=== PATIENT | male | born 1945 | race Caucasian/White ===

== ENCOUNTER 2023-03-26 08:29 | Day surgery (SDC) | payer OTHER, SELFPAY ==
--- NOTE | 2023-03-26 07:17 | HPE_ITS ---
Assessment and Plan Assessment and plan (1) Nuclear age-related cataract, left eye: Status: Acute Assessment and plan: Assessment: Visually significant cataract of the left eye. Plan: Cataract extraction with lens implantation of the left eye. History of Present Illness History of Present Illness Chief Complaint: Progressive decreased vision, left eye Narrative: The patient is a 76-year-old gentleman who presented with complaints of progressive decreased vision in the left eye, at both distance and near. He no significant difficulty with glare from headlights at night. On examination he is noted to have a dense nuclear cataract in the left eye. The option of cataract surgery was offered to the patient and he wished to proceed. PFSH All Active Problems Nuclear age-related cataract, left eye (Acute) Medical History Diabetes mellitus High blood pressure disorder Low back pain Lumbar radiculopathy Obese Osteoarthritis Pain of knee joint on movement Personal history of colonic polyps Presence of hip joint prosthesis Sleep apnea Surgical History History of right hip replacement Social History Smoking/Tobacco Use Status: Never Smoking risk assessment performed?: Yes Alcohol Intake: never Drug use: Never Substance use type: does not use Housing: house Do you feel safe at home: Yes Do you feel safe in your relationship?: Yes Meds Allergies and Home Medications Allergies Allergy/AdvReac Type Severity Reaction Status Date / Time No Known Allergies Allergy Unverified 03/26/23 09:01 Home Medications Medication Instructions Recorded Confirmed Type atenolol 100 mg tablet 100 mg PO BID 03/24/23 03/26/23 History atorvastatin 10 mg tablet 10 mg PO HS 03/24/23 03/26/23 History diclofenac sodium 1 % topical gel 1 applic topical DIRECTED 03/24/23 03/25/23 History empagliflozin 25 mg tablet 25 mg PO DAILY 03/24/23 03/26/23 History (Jardiance) glipizide 10 mg tablet 10 mg PO DIRECTED 03/24/23 03/26/23 History hydrochlorothiazide 25 mg tablet 25 mg PO DAILY 03/24/23 03/26/23 History lisinopril 40 mg tablet 40 mg PO DAILY 03/24/23 03/26/23 History omeprazole 20 mg tablet,delayed 20 mg PO BID 03/24/23 03/26/23 History release salsalate 500 mg tablet 500 mg PO BID 03/24/23 03/26/23 History terazosin 10 mg capsule 10 mg PO DAILY 03/24/23 03/26/23 History Exam Eyes Other: Most recent examination reveals uncorrected visual acuity of 20/25 OD, 20/30 OS. Extraocular motility is normal. Intraocular pressure is 8 OD, 10 OS. Slit- lamp examination reveals pupils dilating to 5 mm OU. The anterior chambers are shallow with narrow angles. In the right eye there is a mild nuclear cataract. In the left eye there is a moderately advanced nuclear cataract. Dilated funduscopic examination reveals disc cupping of 0.25 OU with normal vessels, macula, peripheral retina and vitreous. Resp Auscultation: clear to auscultation bilaterally Cardio Rate: regular rate Rhythm: regular rhythm
[2023-03-26 08:50] VITALS: BP 131/83; PULSE 63; RESP 16; TEMP 37.1; O2SAT 96
[2023-03-26] MEDS: Tropicam./Phenyleph. (1/2.5%) 5 ML BTL OS ×3 (08:58→09:13)
--- NOTE | 2023-03-26 09:19 | W.ANESPRE ---
General Info Date of Service Date Performed: 03/26/23 Height: 5 ft 7.5 in Weight: 101.5 kg Body Mass Index (BMI): 34.5 Surgical Procedure: Operation Date: 03/26/23 10:40 Proposed Procedure Side Surgeon p Cataract Extraction with IOL Implant Left Romel Enrique MD Meds Allergies and Home Medications Allergies Allergy/AdvReac Type Severity Reaction Status Date / Time No Known Allergies Allergy Unverified 03/26/23 09:01 Home Medication Medication Instructions Recorded atenolol 100 mg tablet 100 mg PO BID 03/24/23 atorvastatin 10 mg tablet 10 mg PO HS 03/24/23 diclofenac sodium 1 % topical gel 1 applic topical DIRECTED 03/24/23 empagliflozin 25 mg tablet 25 mg PO DAILY 03/24/23 (Jardiance) glipizide 10 mg tablet 10 mg PO DIRECTED 03/24/23 hydrochlorothiazide 25 mg tablet 25 mg PO DAILY 03/24/23 lisinopril 40 mg tablet 40 mg PO DAILY 03/24/23 omeprazole 20 mg tablet,delayed 20 mg PO BID 03/24/23 release salsalate 500 mg tablet 500 mg PO BID 03/24/23 terazosin 10 mg capsule 10 mg PO DAILY 03/24/23 Current Visit Medications: Current Medications Generic Name Dose Route Start Last Admin Trade Name Freq PRN Reason Stop Dose Admin Acetaminophen 1,000 mg 03/26/23 06:00 Acetaminophen 500 Mg Tab PO 04/25/23 05:59 Q4H PRN PRN Balanced Salt Solution 500 ml 03/26/23 06:00 Balanced Salt Soln.-Plus 500 Ml Bag OP 04/25/23 05:59 DIRECTED [facility] Miscellaneous Medication 0 ml 03/26/23 06:00 Prednisolone 1%, Moxifloxacin 0.5%, Nepafenac 0.1% 5ml Btl OS 04/25/23 05:59 DIRECTED [facility] Miscellaneous Medication 0 ml 03/26/23 06:00 03/26/23 09:13 Tropicam./Phenyleph. (1/2.5%) 5 Ml Btl OS 04/25/23 05:59 1 drp DIRECTED [facility]AN[facility] Administration Tetracaine HCl 0 ml 03/26/23 06:00 Tetracaine 0.5% 4 Ml Btl OS 04/25/23 05:59 DIRECTED [facility] PFSH Active Problems Active Problems: Problem Status Onset Code Nuclear age-related cataract, left eye H25.12 Medical History Medical History Diabetes mellitus High blood pressure disorder Low back pain Lumbar radiculopathy Obese Osteoarthritis Pain of knee joint on movement Personal history of colonic polyps Presence of hip joint prosthesis Sleep apnea Surgical History Surgical History History of right hip replacement Tobacco Smoking/Tobacco Use Status: Never Alcohol Alcohol Intake: never Substance Use Substance use: Never Substance use type: does not use Vital Signs and Lab Results Vital Signs Most Recent Vital Signs in EMR: Most Recent Vital Signs Temp Pulse Resp BP Pulse Ox 37.1 C 63 16 131/83 96 03/26/23 08:50 03/26/23 08:50 03/26/23 08:50 03/26/23 08:50 03/26/23 08:50 Point of Care Results Point of Care Results: Finger Stick Blood Glucose 178 03/26/23 09:01 Lab Results Blood Type / Crossmatch: No Data to Display Complete Blood Count: No Data to Display Complete Metabolic Panel: No Data to Display Liver Function Panel: No Data to Display Coagulation Panel: No Data to Display Cardiac Panel: No Data to Display Arterial Blood Gas: No Data to Display Venous Blood Gas: No Data to Display Pancreas Panel: No Data to Display Thyroid Panel: No Data to Display Infectious Disease: No Data to Display Blood Cultures: No Data to Display Toxicology Panel: No Data to Display Anesthesia Assessment and Plan Anesthesia History Personal History: No History of Anesthesia Complications Family History: No Family History of Anesthesia Complications Exercise Tolerance Exercise Tolerance: Metabolic Equivalents>4 Pertinent Negatives Pertinent Negatives: No Symptoms of GERD, No Major Cardiovascular Symptoms or Complaints and No Major Pulmonary Symptoms or Complaints Cardiac & Pulmonary Exam Cardiac Exam: Normal S1/S2 Heart Sounds Pulmonary Exam: Clear Bilateral Breath Sounds Implantable Cardiac Device Does patient have a Pacemaker or an ICD?: No Airway Exam Known Difficult Airway: No Mallampati Class: 2 Mouth Opening: Normal (> 3cm) Thyromental Distance: Less than 3 cm Neck Range of Motion: Full ROM Neck Circumference: Normal Teeth Condition: Normal Dentition, Removable Dentures/Plates Upper and Removable Dentures/Plates Lower ASA Classification ASA Score: ASA 2 Emergency Case?: No NPO Status NPO Status: NPO Clears >2 hours, Solids >8 hours Anesthesia Plan Resuscitation Status: Full Code Anesthesia Technique: MAC Anesthesia Airway Planned: Natural Airway Monitors Used: Standard Monitors
[2023-03-26 09:20] VITALS: BMI 34.5
[2023-03-26] MEDS: Balanced Salt Soln.-PLUS 500 ML BAG OP (10:37)
[2023-03-26] MEDS: Tetracaine 0.5% 4 ML BTL OS (10:38)
[2023-03-26] MEDS: Duovisc Viscoelastic System EACH 1 EACH (10:39)
[2023-03-26] MEDS: Lidocaine 1% Pres-Free 5 ML VIAL (10:40)
[2023-03-26] MEDS: Phenylephrine/Lidocaine (15/10) MG/ML 1 ML VIAL (10:41)
[2023-03-26] MEDS: Povidone-Iodine Ophth 30 ML BTL (10:42)
[2023-03-26 10:55] VITALS: BP 141/61; PULSE 61; RESP 16; TEMP 36.4; O2SAT 97
--- NOTE | 2023-03-26 10:55 | PDOC.DSDIS_ITS ---
Date of service: 03/26/23 Time of Service: 10:55 Discharge Plan Disposition Patient Disposition: Home Discharge Details Attending Provider: Romel Enrique Primary Care Provider: [facility] Home Meds and New Rx's Prescriptions: No Action salsalate 500 mg Tablet 500 mg PO BID atorvastatin 10 mg Tablet 10 mg PO HS atenolol 100 mg Tablet 100 mg PO BID glipizide 10 mg Tablet 10 mg PO DIRECTED hydrochlorothiazide 25 mg Tablet 25 mg PO DAILY lisinopril 40 mg Tablet 40 mg PO DAILY terazosin 10 mg Capsule 10 mg PO DAILY diclofenac sodium 1 % Gel 1 applic TOPICAL DIRECTED omeprazole 20 mg Tablet,Delayed Release (Dr/Ec) 20 mg PO BID Jardiance 25 mg Tablet 25 mg PO DAILY Discharge Instructions Stand Alone Forms: Post-op Topical Cataract, Paulino Bautista (DSU) Discharge Orders Discharge Orders: Discharge Order (Routine); Ordered 03/26/23 Ordered By: Romel Enrique DS: Diagnosis Discharge Diagnosis (1) Nuclear age-related cataract, left eye: Status: Resolved
--- NOTE | 2023-03-26 10:56 | ROE_ITS ---
Date of service: 03/26/23 Time of Service: 10:56 Operative Note Operative Note DATE OF PROCEDURE: 03/26/23 PRE-OP DIAGNOSIS: Nuclear cataract, left eye POST-OP DIAGNOSIS: same PROCEDURE: Cataract extraction using phacoemulsification with intraocular lens implant, left eye SURGEON: Romel Enrique ANESTHESIA TYPE: Local By Surgeon and MAC Refer to Anesthesia Record PATHOLOGY: none sent COMPLICATIONS: None Patient was transported to: same day Patient's condition: stable Implants: Sky and Sky Tecnis Eyhance DIB00 Indications: Progressive decreased vision due to cataract, left eye Procedure Description: CATARACT SURGERY OPERATIVE REPORT PREOPERATIVE DIAGNOSIS: 1. Nuclear cataract, left eye POSTOPERATIVE DIAGNOSIS: Same OPERATION: 1. Cataract extraction using phacoemulsification with posterior chamber intraocular lens implant, left eye. IOL: IOL Mosaic Worker/Model: Sky & Sky Tecnis Eyhance DIB00 IOL Power: + 21.0 diopters IOL Serial Number: [id number] Optic Diameter: 6.0 mm Haptic/Overall Diameter: 13.0 mm PHACO INFO: RamanSuperhuman Vision System with OZil and Active Fluidics Cumulative Dispersed Energy (CDE): 26.49 seconds SURGEON: Romel Enrique MD, ALLA ANESTHESIA: Monitored A [facility] (MAC), with local sub-tenon's anesthetic infiltration COMPLICATIONS: None SPECIMENS: None INDICATIONS FOR PROCEDURE: The patient is a 77-year-old gentleman with history of diminished visual acuity in his left eye secondary to the development of dense nuclear cataract. He is significantly symptomatic that he desires cataract surgery and attempt to improve and maximize his vision. The option of cataract surgery was offered to the patient and he wished to proceed. See office notes for detailed information. PROCEDURE: The correct surgical eye was identified and marked as the left eye and the pupil was dilated in the preoperative area using mydriatics and cycloplegics. The dilated pupil size was 5.0 mm. . The patient elected to proceed without oral sedation. The patient was brought to the operating room where cardiopulmonary monitoring was instituted and surgical time-out was performed, confirming the correct operative eye and IOL power. Topical anesthesia was administered and ophthalmic povidone-iodine 5% was instilled into the conjunctival fornices. The juana-ocular area was prepped with Betadine 10% solution and draped in the usual sterile fashion for intraocular surgery, including an aperture drape. A Tegaderm transparent film dressing was cut in half and used to cover the lashes and lid margins. Care was taken to sequester the lashes and lid margins under the Tegaderm dressing. A lid speculum was placed between the lids of the operative eye and the Raman LuxOR Revalia operating microscope was maneuvered into position. Michela scissors were then used to make a conjunctival buttonhole approximately 6mm posterior to the limbus in the inferonasal quadrant. Blunt dissection was carried out to expose bare sclera, and a blunt-tipped sub-tenon?s anesthesia cannula was introduced and passed posteriorly along the globe where non- preserved plain lidocaine was injected into posterior sub-Tenon?s space. A sideport knife was used to make a paracentesis port. Intraocular phenylephrine/lidocaine was injected into the anterior chamber.. The anterior chamber was filled with viscoelastic. A keratome knife was used to construct a 2-plane near-clear corneal tunnel extending 2.0mm into clear cornea. A flap was raised on the anterior capsule and capsulorhexis forceps were used to complete a continuous curvilinear capsulorhexis of 5.0 mm. Balanced salt solution was then used to perform cortical cleaving hydrodissection and nuclear hydrodelineation until the lens could be freely rotated within the capsular bag. The lens nucleus was then disassembled and removed within the capsular bag and iris plane using phacoemulsification. Residual cortical material was removed using the irrigation/aspiration handpiece. The posterior capsule was carefully polished to remove as much residual lens epithelial cells as safely possible. The capsular bag was then inflated and the anterior chamber deepened with viscoelastic. The lens implant described above was inserted into the capsular bag using the Sky and Sky Simplicity pre-loaded injector. A Kuglen hook was used to dial the IOL into position. Residual viscoelastic was then removed first from posterior to the IOL, then from the anterior chamber using the I/A handpiece. The lens implant was noted to center nicely within the capsular bag. The incisions were stromally hydrated, and the anterior chamber was reformed using BSS. Then 0.5cc of moxifloxacin 1.0mg/ml were injected into the capsular bag and anterior chamber. The incisions were checked with a Weck spear and found to be secure. Several drops of ophthalmic povidone-iodine 5% were then applied to the eye followed by two drops of Imprimis combination prednisolone/moxifloxacin/nepafenac solution. The drapes were removed and a clear plastic protective eye shield was placed over the eye. The patient was then returned to Same Day Surgery in stable condition.
--- NOTE | 2023-03-26 11:12 | W.ANESPOSTOP ---
Postoperative Evaluation Date, Time and Location Date Performed: 03/26/23 Time Performed: 11:13 Patient Location: Day Surgery Unit Vital Signs Most Recent Imported Vital Signs: Most Recent Vital Signs Temp Pulse Resp BP Pulse Ox 36.4 C L 61 16 141/61 H 97 03/26/23 10:55 03/26/23 10:55 03/26/23 10:55 03/26/23 10:55 03/26/23 10:55 Pain Score Most Recent Pain Score: Most Recent Pain Score Pain Level 0 03/26/23 10:55 Assessment Mental Status: Awake (Alert & Oriented to Patient Baseline) Airway and Respiratory Function: Patent airway with normal (patient baseline) respiratory exam Cardiovascular Function: Hemodynamically Stable Hydration Status: Adequately Hydrated Nausea & Vomiting: No Nausea or Vomiting Pain: Pt. Denies Any Pain Peripheral Nerve Block: Patient did not receive a nerve block
== END 2023-03-26 11:15 | disposition home or self-care (01) ==
PROVIDERS: Visit Provider Ophthalmology
PROC: (CPT 66984; principal; 2023-03-26 10:30)
DX: H25.12 Age-related nuclear cataract, left eye (principal); G47.33 Obstructive sleep apnea (adult) (pediatric)
CPT/HCPCS: 66984; V2632

== ENCOUNTER 2023-11-04 20:39 | Outpatient (CLI) | payer OTHER, SELFPAY ==
[2023-11-04 15:11] LABS: Abs Immature Grans 0.03 10^3/uL (0.0-0.06); Absolute Basophil Count 0.06 10^3/uL (0.0-0.2); Absolute Eosinophil Count 0.26 10^3/uL (0.0-0.7); Absolute Lymphocyte Count 1.99 10^3/uL (1.2-3.4); Absolute Monocyte Count 0.59 10^3/uL (0.1-0.8); Absolute Neutrophil Count 4.24 10^3/uL (1.2-6.7); Basophils % 0.8; Eosinophils % 3.6; HCT 49.6 % (40.0-50.0); HGB 16.8 g/dL (13.5-17.5); Immature Grans % 0.4; Lymphocytes % 27.8; MCH 29.1 pg (27.0-33.0); MCHC 33.9 % (32.0-36.0); MCV 86 fL (80-95); MPV 10.2 fL (8.0-11.0); Monocytes % 8.2; Neutrophils % 59.2; Platelet Count 144 10^3/uL (130-400); RBC 5.78 10^6/uL (4.36-5.78); RDW 14.2 % (11.8-14.1); RDW-SD 43.8 fL; WBC 7.17 10^3/uL (4.4-10.8)
[2023-11-04 15:26] LABS: ALT 44 U/L (16-63); AST 28 U/L (15-37); Albumin 3.8 g/dL (3.4-5.0); Alkaline Phosphatase 87 U/L (46-116); Anion Gap 8.3 mmol/L (3-11); BUN 19 mg/dL (7-18); Bilirubin, Total 0.6 mg/dL (0.2-1.0); CO2 30.7 mmol/L (21.0-32.0); CREATININE 1.4 mg/dL (0.70-1.30); Calcium 8.8 mg/dL (8.5-10.1); Chloride 103 mmol/L (98-107); Estimated GFR 51.45 (mL/min/1.73m2); Glucose 134 mg/dL (74-106); Potassium 3.7 mmol/L (3.5-5.1); Sodium 142 mmol/L (136-145); Total Protein 7.6 g/dL (6.4-8.2)
[2023-11-06 10:36] LABS: PSA, Ultrasensitive 15.6 ng/mL (<= 6.5)
[2023-11-08 15:12] LABS: Testosterone, Total 224 ng/dL (240-950)
== END 2023-11-04 20:40 | disposition home or self-care (01) ==
LOC: LBO 20:44
PROVIDERS: Visit Provider Radiology Radiation Oncology
DX: C61 Malignant neoplasm of prostate (principal)
CPT/HCPCS: 36415; 80053; 84153; 84403; 85025

== ENCOUNTER 2024-02-28 02:57 | Outpatient (CLI) | payer OTHER, SELFPAY ==
[2024-02-28 11:11] LABS: Abs Immature Grans 0.06 10^3/uL (0.0-0.06); Absolute Basophil Count 0.02 10^3/uL (0.0-0.2); Absolute Eosinophil Count 0.16 10^3/uL (0.0-0.7); Absolute Lymphocyte Count 0.47 10^3/uL (1.2-3.4); Absolute Monocyte Count 0.63 10^3/uL (0.1-0.8); Absolute Neutrophil Count 3.41 10^3/uL (1.2-6.7); Basophils % 0.4 %; Eosinophils % 3.4 %; HCT 36.6 % (40.0-50.0); HGB 12.8 g/dL (13.5-17.5); Immature Grans % 1.3 %; Lymphocytes % 9.9 %; MCH 30.8 pg (27.0-33.0); MCV 88 fL (80-95); MPV 9.6 fL (8.0-11.0); Monocytes % 13.3 %; Neutrophils % 71.7 %; Platelet Count 110 10^3/uL (130-400); RBC 4.16 10^6/uL (4.36-5.78); RDW 14.9 % (11.8-14.1); RDW-SD 46.5 fL; WBC 4.75 10^3/uL (4.4-10.8)
[2024-02-28 12:05] LABS: ALT 49 U/L (16-63); AST 34 U/L (15-37); Albumin 3.7 g/dL (3.4-5.0); Alkaline Phosphatase 64 U/L (46-116); Anion Gap 6.9 mmol/L (3-11); BUN 21 mg/dL (7-18); CO2 34.1 mmol/L (21.0-32.0); CREATININE 1.4 mg/dL (0.70-1.30); Calcium 9.2 mg/dL (8.5-10.1); Chloride 101 mmol/L (98-107); Estimated GFR 51.13 (mL/min/1.73m2); Glucose 271 mg/dL (74-106); Potassium 3.2 mmol/L (3.5-5.1); Sodium 142 mmol/L (136-145); Total Protein 6.9 g/dL (6.4-8.2)
[2024-03-01 15:08] LABS: PSA, Ultrasensitive 0.16 ng/mL (<= 6.5)
[2024-03-03 03:38] LABS: Testosterone, Total <7.0 ng/dL (240-950)
== END 2024-02-28 02:58 | disposition home or self-care (01) ==
LOC: LBO 02:58
PROVIDERS: Visit Provider Radiology Radiation Oncology
DX: C61 Malignant neoplasm of prostate (principal)
CPT/HCPCS: 36415; 80053; 84153; 84403; 85025

== ENCOUNTER 2024-03-30 13:16 | Outpatient (CLI) | payer OTHER, SELFPAY ==
[2024-04-01 13:34] LABS: PSA, Ultrasensitive 0.05 ng/mL (<= 6.5)
[2024-04-02 17:57] LABS: Testosterone, Total 7.4 ng/dL (240-950)
== END 2024-03-30 13:17 | disposition home or self-care (01) ==
LOC: LBO 13:16
PROVIDERS: Visit Provider Radiology Radiation Oncology
DX: C61 Malignant neoplasm of prostate (principal)
CPT/HCPCS: 36415; 84153; 84403